=== PATIENT | male | born 1950 | race Caucasian/White ===

== ENCOUNTER 2017-07-03 14:20 | Outpatient (CLI) | payer MEDICARE ==
--- NOTE | 2017-07-03 15:50 | MRI ---
MRI BRAIN WITH AND WITHOUT CONTRAST: HISTORY: Frontotemporal dementia. Extreme confusion. COMPARISON: None. TECHNIQUE: Brain MRI is performed with and without intravenous Gadolinium administration. Multisequential, mult iplanar imaging is performed. FINDINGS: No hemorrhage on the axial gradient echo sequence. No parenchymal mass, mass effect, or midline shift. Brain volume is age appropriate. Cortical musa- white matter differentiation is preserved. Ventricles and sulci are patent and symmetric. Central arterial flow voids are maintained. Absent restricted diffusion. Minimal T2 and FLAIR white matter hyperintensities, nonspecific. Minimal mucosal disease of the para nasal sinuses. Small air fluid of the left maxillary sinus. Adequate mastoid air cell aeration. No pathologic enhancement of the brain parenchyma. IMPRESSION: 1. Age-appropriate atrophy. 2. Minimal chronic small-vessel ischemic change of the white matter. 3. Absent restricted diffusion. No acute infarction. POS: [facility]
== END 2017-07-03 14:21 | disposition home or self-care (01) ==
LOC: TBSIIMAG 14:20
PROVIDERS: ATTEND Psychiatry & Neurology Neurology
DX: G31.09 Other frontotemporal neurocognitive disorder (principal); I67.82 Cerebral ischemia
CPT/HCPCS: 70553; 82565

== ENCOUNTER 2017-08-14 13:57 | Outpatient (CLI) | payer MEDICARE ==
--- NOTE | 2017-08-15 12:23 | PET ---
PET CT OF BRAIN: Date: 08/14/17 HISTORY: Other frontotemporal dementia. TECHNIQUE: PET CT of brain was performed following the intravenous administration of 9.5 mCi [id number] in the righ t hand. FINDINGS: Fairly homogeneous tracer distribution is seen in the cerebral hemispheres bilaterally. No focal hypo metabolism is identified. IMPRESSION: Unremarkable exam. POS: [facility]
== END 2017-08-14 13:58 | disposition home or self-care (01) ==
LOC: PET 13:57
PROVIDERS: ATTEND Psychiatry & Neurology Neurology
DX: G31.09 Other frontotemporal neurocognitive disorder (principal)
CPT/HCPCS: 78608; A9552